=== PATIENT | female | born 1995 | race Two or more races ===

== ENCOUNTER 2024-04-20 01:57 | Emergency (ER) | payer MEDICAID, SELFPAY ==
[2024-04-20 01:57] VITALS: BMI 47.7
[2024-04-20 02:02] VITALS: BP 156/94; PULSE 97; RESP 19; TEMP 36.9; O2SAT 99
--- NOTE | 2024-04-20 02:09 | PD.EDSKIN ---
ED Skin Abcess FB-RME/HPI General Chief complaint: Skin/Abscess/Foreign Body Stated complaint: LEFT ARM RASH Time Seen by Provider: 04/20/24 02:06 Arrival date/time: 04/20/24 01:57 29F with no significant PMH presents to ED with 2 days of painful L arm rash. Patient denies itchiness. Limitations: no limitations Related Data Home Medications ?Medication ?Instructions ?Recorded ?Confirmed ferrous sulfate 325 mg (65 mg 325 mg PO BID 12/21/18 12/21/18 iron) tablet (iron) vit no.95-ferrous 1 tab PO QDAY 12/21/18 12/21/18 fumarate 28 mg-folic acid 800 mcg tablet () Previous Rx's ?Medication ?Instructions ?Recorded acyclovir 800 mg tablet 800 mg PO Q4H 7 days #35 tabs 04/20/24 Allergies Allergy/AdvReac Type Severity Reaction Status Date / Time meperidine Allergy Severe Swelling Verified 04/10/22 13:29 promethazine Allergy Severe Swelling Verified 04/10/22 13:29 Review of Systems Review of Systems Systems Reviewed: All systems reviewed, normal except as documented Constitutional Constitutional: Reports system reviewed and no additional complaints, except as documented, Denies fever(s) and Denies headache(s) ENT Ears, Nose, Mouth, and Throat: Denies disequilibrium and Denies headache(s) Cardiovascular Cardiovascular: Reports system reviewed and no additional complaints, except as documented, Denies chest pain and Denies dyspnea Respiratory Respiratory: Reports system reviewed and no additional complaints, except as documented, Denies cough and Denies dyspnea Gastrointestinal Gastrointestinal: Reports system reviewed and no additional complaints, except as documented, Denies abdominal pain, Denies nausea and Denies vomiting Integumentary/Breasts Skin/Breast: Reports as per HPI, Reports rash and Reports skin pain Neurologic Neurologic: Reports system reviewed and no additional complaints, except as documented, Denies confusion, Denies disequilibrium and Denies headache(s) Psychiatric Psychiatric: Denies confusion Past Medical History Past Medical History NEUROLOGIC: Negative Neurological Disorders CARDIAC: Positive Cardiac Disorders and Hypertension (during ); Negative Congestive Heart Failure RESPIRATORY: Negative Chronic Obstructive Pulmonary Disease (COPD) GASTROINTESTINAL: Negative Gastrointestinal Disorders GENITOURINARY: Negative Genitourinary Disorders or Renal Disease MUSCULOSKELETAL: Negative Musculoskeletal Disorders ENDOCRINE: Negative Endocrine Disorders, Diabetes Mellitus Type 1 or Diabetes Mellitus Type 2 HEMATOLOGIC: Negative Blood Disorders Surgical History SURGICAL: Positive Abdominal Surgery Social History SMOKING STATUS: Never smoker ED Exam General Limitations: Present no limitations General appearance: Present alert and in no apparent distress Head Head exam: Present atraumatic Eye Eye exam: Present normal appearance, PERRL and EOMI ENT ENT exam: Present normal exam, normal oropharynx and mucous membranes moist Neck Neck exam: Present normal inspection, full ROM and trachea midline Chest Chest inspection: Present normal inspection and symmetric chest wall rise Respiratory Respiratory exam: Present normal lung sounds bilaterally Cardiovascular Cardiovascular exam: Present regular rate, normal rhythm and normal heart sounds Abdominal Exam Abdominal exam: Present soft and normal bowel sounds Extremities Exam Extremities exam: Present full ROM Back Exam Back exam: Present normal inspection and full ROM Neurological Exam Neurological exam: Present alert, oriented X3 and CN II-XII intact Psychiatric Psychiatric exam: Present normal affect and normal mood Skin Skin exam: Present warm, dry, intact, normal color and rash Course Quality Measures none Orders Category Date Time Status Acyclovir [Zovirax] Med 04/20/24 02:07 Discontinued 800 mg PO X1 ONE Naproxen [Naprosyn] Med 04/20/24 02:07 Discontinued 500 mg PO X1 ONE Vital Signs Vital signs: Vital Signs Temperature 98.4 F 04/20/24 02:02 Pulse Rate 97 04/20/24 02:02 Respiratory Rate 19 04/20/24 02:02 Blood Pressure 156/94 H 04/20/24 02:02 Pulse Oximetry (%) 99 04/20/24 02:02 Oxygen Delivery Method Room Air 04/20/24 02:02 O2 at 99% on RA and WNLs Skin / Abscess / Foreign Body MDM Narrative MDM Narrative:: 29F with no significant PMH presents to ED with 2 days of painful L arm rash. Patient denies itchiness. Physical exam reveals vesicular rash along dermatomal path on L upper arm. Patient is afebrile, calm, and alert. Likely shingles. Patient data External records reviewed:: [facility] previous records Clinical information provided by:: patient Social determinants that could affect healthcare access:: none Patient has the following chronic illnesses:: none How is presenting disease/condition affected by chronic disease/condition?: no chronic disease Evaluation data The following diagnostics were reviewed and interpreted by me:: other (specify) (none) Lab and/or radiology exams considered but not ordered:: not ordered Interpretation Summary: n/a Medications / Prescriptions Medications or Prescriptions considered but not ordered:: ordered Medication administrations:: Medication Administration History Discontinued Medications Acyclovir (Acyclovir 800 Mg Tablet) 800 mg PO X1 ONE Stop: 04/20/24 02:08 Last Admin: 04/20/24 02:14 Dose: 800 mg Documented By: AMERICO Naproxen (Naproxen 250 Mg Tablet) 500 mg PO X1 ONE Stop: 04/20/24 02:08 Last Admin: 04/20/24 02:14 Dose: 500 mg Documented By: AMERICO above Consultations Consultation(s) initiated? (list below): No Diagnosis Skin/Abscess Differential Diagnosis: abscess of skin or subcutaneous tissue, viral exanthem, dermatophytosis, urticaria, herpes zoster, allergic reaction to drug, cellulitis, eczema, insect bites, impetigo and contact dermatitis Most likely diagnosis given after review of the tests above:: shingles Admission Indicated Admission indicated?: not indicated Admission Request Was there a request for admission?: No Disposition Plan Disposition Plan: Discharge Discharge Attestation Discharge Attestation: The patient and all family members were given an opportunity to ask questions and understood the discharge instructions. Discharge instructions specifically effects, indications for sooner follow up or return to the emergency department, and the expected course of current diagnosis. Patient condition: Stable Discharge Plan Plan Patient Disposition: HOME (Self Care) Disposition Comment: Stable Prescriptions/Referrals Prescriptions/Med Rec: New acyclovir 800 mg tablet 800 mg PO Q4H 7 Days Qty: 35 0RF Rx Instructions: while awake; give 5 doses in 24 hours No Action ferrous sulfate [iron] 325 mg (65 mg iron) Tablet 325 mg PO BID PNV cmb#95-ferrous fumarate-FA [] 28 mg iron- 800 mcg Tablet 1 tab PO QDAY Problem List Clinical Impression: Herpes zoster Patient/Caregiver Discharge Instructions Education Materials: ED Shingles (Herpes Zoster) Additional Instructions: Please follow-up with PCP within 24-48 hours and return immediately if symptoms worsen. Ibuprofen/Tylenol can be used simultaneously for greater fever/pain control. Print Language: Tanzanian Stand Alone Forms: Patient Portal Info Letter CELESTE/TREVOR Supervising Physician CELESTE/TREVOR Supervising Physician: Dr. Mcclain
[2024-04-20] MEDS: ACYCLOVIR 800 MG TABLET PO (02:14)
[2024-04-20] MEDS: NAPROXEN 250 MG TABLET 500 MG PO (02:14)
== END 2024-04-20 02:15 | disposition home or self-care (01) ==
LOC: SERX 02:15
PROVIDERS: Emergency Provider Emergency Medicine; PCP Physician Assistant
DX: B02.9 Zoster without complications (principal)
CPT/HCPCS: 99282; A9270